=== PATIENT | female | born 2000 | race Two or more races ===

== ENCOUNTER 2023-05-05 12:24 | Emergency (ER) | payer OTHER ==
[2023-05-05] MEDS ORDERED: FAMOTIDINE 20 MG/50 ML IVPB 20 MG/50 ML MG IVPB ONE ×2 (12:39→12:52)
[2023-05-05] MEDS ORDERED: SODIUM CHLORIDE 1,000 ML IV STA (12:39)
[2023-05-05] MEDS ORDERED: ONDANSETRON 4 MG/2 ML VIAL IVPUSH ONE (12:39)
[2023-05-05] MEDS ORDERED: ACETAMINOPHEN 1000 MG/100 ML BAG IVPB ONE (12:39)
[2023-05-05] MEDS ORDERED: ONDANSETRON 4 MG/2 ML VIAL ONE (12:51)
[2023-05-05] MEDS ORDERED: ACETAMINOPHEN INJECTION 100 ML IVPB ONE (12:52)
[2023-05-05] MEDS ORDERED: ONDANSETRON *ODT* 4 MG TABLET ONE (12:52)
[2023-05-05 13:36] LABS: HEMATOCRIT 39.4 % (32.4-45.2); HEMOGLOBIN 13.3 G/dL (10.7-15.3); MCH 30.3 pg (25.7-33.7); MCHC 33.8 g/dl (32.0-36.0); MEAN CELL VOLUME 89.5 fl (80-96); MEAN PLT VOLUME 9.8 fl (7.5-11.1); PLATELET COUNT 246.6 10^3/uL (134-434); RDW 13.4 % (11.6-15.6); WHITE BLOOD COUNT 17.8 10^3/uL (4.0-10.8)
[2023-05-05 13:38] LABS: ALBUMIN 4.4 g/dl (3.4-5.0); ALK PHOS 87 U/L (45-117); ANION GAP 10 mmol/L (4-13); BILIRUBIN,TOTAL 0.3 mg/dl (0.2-1); CALCIUM 9.4 mg/dl (8.5-10.1); CHLORIDE 102 mmol/L (98-107); CO2 24 mmol/L (21-32); CREATININE 0.7 mg/dl (0.6-1.3); GLUCOSE,RANDOM 89 mg/dl (74-106); PLATELET ESTIMATE ADEQUATE; POTASSIUM 4.2 mmol/L (3.5-5.1); SGOT/AST 17 U/L (15-37); SGPT/ALT 17 U/L (7-52); SODIUM 136 mmol/L (136-145); TOT PROT 7.3 g/dl (6.4-8.2)
[2023-05-05] MEDS ORDERED: CEFTRIAXONE 1 GM in DEXTROSE 5%-WATER - 100 ML IVPB ONE (14:13)
[2023-05-05] MEDS ORDERED: cefTRIAXone SODIUM 1 GM VIAL ONE (14:22)
[2023-05-05 15:04] VITALS: BP 129/78; PULSE 99; RESP 16; TEMP 99.6
[2023-05-05] MEDS ORDERED: KETOROLAC TROMETHAMINE 30 MG/1 ML VIAL IVPUSH ONE (15:20)
[2023-05-05] MEDS ORDERED: KETOROLAC TROMETHAMINE 30 MG/1 ML VIAL ONE (15:26)
== END 2023-05-05 16:29 | disposition home or self-care (01) ==
LOC: FER 12:24
PROC: 3E033GC Introduction of Other Therapeutic Substance into Peripheral Vein, Percutaneous Approach (ICD-10-PCS; principal; 2023-05-05)
PROC: 3E03329 Introduction of Other Anti-infective into Peripheral Vein, Percutaneous Approach (ICD-10-PCS; 2023-05-05)
PROC: 3E033NZ Introduction of Analgesics, Hypnotics, Sedatives into Peripheral Vein, Percutaneous Approach (ICD-10-PCS; 2023-05-05)
PROC: 3E033GC Introduction of Other Therapeutic Substance into Peripheral Vein, Percutaneous Approach (ICD-10-PCS; 2023-05-05)
PROC: 3E033GC Introduction of Other Therapeutic Substance into Peripheral Vein, Percutaneous Approach (ICD-10-PCS; 2023-05-05)
DX: R50.9 Fever, unspecified (principal); R11.2 Nausea with vomiting, unspecified; R09.81 Nasal congestion; R51.9 Headache, unspecified; N12 Tubulo-interstitial nephritis, not specified as acute or chronic; Z20.822 Contact with and (suspected) exposure to COVID-19
CPT/HCPCS: 0241U-QW; 36415; 80053; 81003; 81015; 84702; 85027; 99284-25

== ENCOUNTER 2023-08-18 06:09 | Emergency (ER) | payer OTHER ==
[2023-08-18 06:24] VITALS: BP 131/80; PULSE 108; RESP 16; TEMP 100.4; BMI 32.0
[2023-08-18] MEDS ORDERED: ACETAMINOPHEN 325 MG TABLET (FP) ONE (06:34)
[2023-08-18] MEDS ORDERED: guaiFENesin/D-METHORPHAN HB 10 ML UNIT-DOSE CUPS ONE (06:35)
[2023-08-18] MEDS: ACETAMINOPHEN 325 MG TABLET (FP) PO ONE (06:45)
[2023-08-18] MEDS ORDERED: ONDANSETRON *ODT* 4 MG TABLET ONE (06:46)
[2023-08-18] MEDS: guaiFENesin/D-METHORPHAN HB 10 ML UNIT-DOSE CUPS PO ONE (06:46)
[2023-08-18] MEDS: ONDANSETRON *ODT* 4 MG TABLET SL ONE (06:46)
== END 2023-08-18 07:02 | disposition home or self-care (01) ==
LOC: FER 06:09
DX: U07.1 COVID-19 (principal); J06.9 Acute upper respiratory infection, unspecified; A08.4 Viral intestinal infection, unspecified; R07.0 Pain in throat; R11.2 Nausea with vomiting, unspecified; R50.9 Fever, unspecified; R51.9 Headache, unspecified
CPT/HCPCS: 0241U-QW; 87651; 99283-25; Q0162